=== PATIENT | male | born 1950 | race Caucasian/White ===

== ENCOUNTER 2022-02-07 06:25 | Day surgery (SDC) | payer BC, OTHER ==
[~2022-02-07] VITALS: Ht 162.6 cm; Wt 71.8 kg
[2022-02-07] MEDS ORDERED: ADULT LOW DOSE81 MG PO (06:46)
--- NOTE | 2022-02-07 08:06 | NUR ---
02/07/22 0806 Herminia Chang 0801-PATIENT ARRIVED TO PACU ON 2L NC RR EVEN LAYING LEFT LATERAL. PATIENT NONAROUSABLE ABDOMEN SOFT. IVF INFUSING.
--- NOTE | 2022-02-07 10:27 | NUR ---
PT ALERT, ORIENTED AND HAS HAD PREVIOUS SCOPES. PT SEEMS PREPARED, MENTIONED HIS WILL BE HERE AT [place]. PT THANKED ME FOR VISIT, GAVE BLESSING
--- NOTE | 2022-02-08 07:02 | OR ---
[facility] [address], [place] [address] Signed DATE OF OPERATION: 02/07/2022 SURGEON: Renetta Christensen MD PREOPERATIVE DIAGNOSES: 1. Moderate pandiverticulosis. 2. Internal hemorrhoids. 3. Hyperplastic and adenomatous polyps in 2015 at age 64. 4. Maternal cousin with colon cancer in his 50s. POSTOPERATIVE DIAGNOSES: 1. A 3 mm polyp x2 at 6 cm. 2. A 4 mm polyp at 75 cm. 3. A 3 mm polyp at 50 cm. 4. Biopsy of the ileocecal valve. 5. Tattoo next to ileocecal valve. 6. Moderate pandiverticulosis. PROCEDURES: Colonoscopy with hot biopsy. ESTIMATED BLOOD LOSS: None. INDICATIONS: Pérez is a 71-year-old gentleman asked to see me for followup colonoscopy. I helped him with a colonoscopy in 2014 at the age of 64. He had moderate pandiverticulosis along with internal hemorrhoids. He also hyperplastic and adenomatous polyps removed. Next to the ileocecal valve, we left a tattoo after we removed a 15 mm polyp. In total, he had seven polyps removed. He had done well with Versed and fentanyl. He came back to us in 2016. We took out two additional adenomas polyps, one hyperplastic polyp. These polyps were less than 5 mm in diameter. Once again, he had the pandiverticulosis along with internal hemorrhoids. He did well with Versed and fentanyl. He said he is doing fine since then. He has no lower GI complaints. He found that his maternal cousin was diagnosed and of colon cancer in his 50s. Pérez also said he quit drinking his beer back in August of 2021. He said he is retired and doing well. He said he is enjoying his grandkids. In the office, I gave him a pamphlet on colonoscopy. We had reviewed the nature of the test. There is risk including, but not limited to gas bloating, crampy abdominal pain, bleeding, perforation requiring surgery, and missed diagnosis. He also recalls the need for IV conscious sedation. He had expressed Electronically Signed By: RENETTA CHRISTENSEN MD 02/08/22 0702 PATIENT NAME: PÉREZ PANDYA OPERATIVE REPORT DATE OF : 54 REPORT #: [id number] PHYSICIAN: RENETTA CHRISTENSEN MD PCP: CHUYITA RODRIGUEZ MD REPORT IS CONFIDENTIAL AND NOT TO BE RELEASED WITHOUT AUTHORIZATION [facility] [address], [place] [address] Signed understanding and wished to proceed. DESCRIPTION OF PROCEDURE: Pérez was taken into our endoscopy suite and placed in the left lateral decubitus position. He was given a total of 9 mg of Versed and 200 mcg of fentanyl to cover the case. A digital rectal exam was performed and he had good sphincter tone. There were a little or no external hemorrhoids. No masses noted. Prostate is a little indurated. The adult colonoscope had been introduced and advanced all around into the cecum under direct visualization of camera without difficulty. His prep was quite excellent. We could easily see the appendiceal orifice and the ileocecal valve. We had taken pictures throughout for photodocumentation. He has a fairly prominent ileocecal valve, so we just took a single biopsy of that ileocecal valve. I suspect that will be fine. We can see the tattoo next to the ileocecal valve. We examined the area carefully and it is all well healed without any evidence of recurrent polyp. As we withdrew the scope, he indeed has moderate pandiverticulosis. We also discovered several small polyps, which were removed with the help of hot biopsy forceps. Once down in the rectum, the scope had been retroflexed and does have small internal hemorrhoid columns. After this, the gas was suctioned out. The colonoscope removed. Pérez tolerated the procedure quite well. RECOMMENDATIONS: I will see Pérez back in my office in 7 to 14 days to review his results. I suspect he will stay on the five year plan. Renetta Christensen MD [facility] /[id number] cc: [facility] Renetta Christensen MD Patient Chart Electronically Signed By: RENETTA CHRISTENSEN MD 02/08/22 0702 PATIENT NAME: PÉREZ PANDYA OPERATIVE REPORT DATE OF : 54 REPORT #: [id number] PHYSICIAN: RENETTA CHRISTENSEN MD PCP: CHUYITA RODRIGUEZ MD REPORT IS CONFIDENTIAL AND NOT TO BE RELEASED WITHOUT AUTHORIZATION [facility] [address] [place] [id number] Signed Copies: [facility] RENETTA CHRISTENSEN MD ~ Electronically Signed By: RENETTA CHRISTENSEN MD 02/08/22 0702 PATIENT NAME: PÉREZ PANDYA OPERATIVE REPORT DATE OF : 54 REPORT #: [id number] PHYSICIAN: RENETTA CHRISTENSEN MD PCP: CHUYITA RODRIGUEZ MD REPORT IS CONFIDENTIAL AND NOT TO BE RELEASED WITHOUT AUTHORIZATION
--- NOTE | 2022-02-11 15:47 | PATH ---
[facility] [address], [place] [address] Signed SPECIMEN(S): A POLYP AT 6 CM SPECIMEN(S): B ILEOCECAL VALVE BIOPSY SPECIMEN(S): C POLYP AT 75 CM SPECIMEN(S): D POLYP AT 50 CM SPECIMEN SOURCE: A. POLYP AT 6 CM B. ILEOCECAL VALVE BIOPSY C. POLYP AT 75 CM D. POLYP AT 50 CM CLINICAL HISTORY: Pre: 2017 adenomatous and hyperplastic polyps. Post: Diverticulosis, internal hemorrhoids, and polyps x3. FINAL PATHOLOGIC DIAGNOSIS: A. Polyp at 6 cm: - Hyperplastic polyp (two fragments). B. Ileocecal valve, biopsy: - Serrated polyp / adenoma (one fragment). C. Polyp at 75 cm: - Hyperplastic polyp (one fragment). D. Polyp at 50 cm: - Hyperplastic polyp (one fragment). JVR:[facility]:C2NR MICROSCOPIC EXAMINATION: Histologic sections of all submitted blocks are examined by light microscopy. These findings, together with the gross examination, support the pathologic diagnosis. GROSS DESCRIPTION: Four specimens are received in four containers, labeled "RB." A. The specimen, labeled "RB, polyp at 6 cm," is received in formalin and consists of two [place] soft tissue fragments that measure 0.2-0.3 cm in greatest dimension. The specimen is entirely submitted in cassette (A1). B. The specimen, labeled "RB, ileocecal valve biopsy," is received in formalin and consists of one [place] soft tissue fragment that measures 0.2 cm in greatest dimension. The specimen is entirely submitted in cassette (B1). PATIENT NAME: PÉREZ PANDYA PATHOLOGY DATE OF : 54 REPORT #: [id number] PHYSICIAN: NANCI FARLEY PCP: CHUYITA RODRIGUEZ MD REPORT IS CONFIDENTIAL AND NOT TO BE RELEASED WITHOUT AUTHORIZATION [facility] [address], [place] [address] Signed C. The specimen, labeled "RB, polyp at 75 cm," is received in formalin and consists of one [place] soft tissue fragments that measures 0.2 cm in greatest dimension. The specimen is entirely submitted in cassette (C1). D. The specimen, labeled "RB, polyp at 50 cm," is received in formalin and consists of one [place] soft tissue fragment that measures 0.2 cm in greatest dimension. The specimen is entirely submitted in cassette (D1). VB (under the direct supervision of a pathologist) The Gross Description was prepared using a voice recognition system. The report was reviewed for accuracy; however, sound-alike word errors, addition and/or deletions may occur. If there is any question about this report, please contact Client Services. PERFORMING LABORATORY: The technical component was performed by [facility], [address] [place] [id number] (CLIA# [id number]). Professional interpretation was performed by [facility], [address] [place] [id number] (CLIA#: [id number]). Diagnostician: Bola Viramontes MD Pathologist Electronically Signed 02/11/2022 Copies: ~ PATIENT NAME: PÉREZ PANDYA PATHOLOGY DATE OF : 54 REPORT #: [id number] PHYSICIAN: NANCI PATHOLOGY PCP: CHUYITA RODRIGUEZ MD REPORT IS CONFIDENTIAL AND NOT TO BE RELEASED WITHOUT AUTHORIZATION
== END 2022-02-07 09:15 | disposition home or self-care (01) ==
LOC: DS 06:25
PROVIDERS: ATTEND Colon & Rectal Surgery
PROC: 0DBC8ZX Excision of Ileocecal Valve, Via Natural or Artificial Opening Endoscopic, Diagnostic (ICD-10-PCS; principal; 2022-02-07 07:30)
DX: Z12.11 Encounter for screening for malignant neoplasm of colon (principal); D12.0 Benign neoplasm of cecum; K57.50 Diverticulosis of both small and large intestine without perforation or abscess without bleeding; K63.5 Polyp of colon; K64.0 First degree hemorrhoids; F10.90 Alcohol use, unspecified, uncomplicated; Z80.0 Family history of malignant neoplasm of digestive organs
CPT/HCPCS: 99153; G0500; J2250; J3010; J7121